=== PATIENT | female | born 1975 | race Caucasian/White ===

== ENCOUNTER 2021-05-28 22:33 | Inpatient (IN) | payer OTHER ==
[2021-05-28] MEDS ORDERED: SODIUM CHLORIDE 0.9% 1,000 ML IV STA (23:07)
[2021-05-28] MEDS ORDERED: DEXAMETHASONE SOD PHOSPHATE 10 MG/ML 1 ML VIAL IVP STA (23:07)
[2021-05-28] MEDS ORDERED: KETOROLAC 15 MG/ML 1 ML VIAL IVP STA (23:07)
[2021-05-28] MEDS ORDERED: ACETAMINOPHEN TAB 500 MG TAB PO STA (23:07)
[2021-05-28] MEDS ORDERED: MORPHINE SULFATE 4 MG/ML SYRINGE IVP STA (23:19)
--- NOTE | 2021-05-28 23:19 | ED ---
Fever HPI - General Source: patient, RN notes reviewed, old records reviewed Mode of arrival: wheelchair Limitations: no limitations - History of Present Illness MD Complaint: fever, malaise, weakness -: days(s) Temperature Source: subjective Context: sick contacts Associated Symptoms: chills, myalgias, other (Back pain) Treatments Prior to Arrival: none <Min Antunez - Last Filed: 05/29/21 04:38> <Ermelinda Bautista - Last Filed: 05/29/21 07:04> - General Chief Complaint: Chest Pain Stated Complaint: Chest pain, swelling throughout body, MONIK Time Seen by Provider: 05/28/21 22:56 - History of Present Illness Initial Comments: This is a 46-year-old female to the emergency room today. Patient Dese for evaluation of severe back pain. Patient states she does not feel well. Does feel little warm and is noted that she does have a likely fever here in the emergency. Patient has a strong medical history distress. Fall with surgeries as a young age, no recent surgeries. No nausea vomiting diarrhea or abdominal pain. Patient was at a concert recently. Patient's main concern is back pain but otherwise no current chest pain or shortness of breath (Min Antunez) - Related Data Allergies Allergy/AdvReac Type Severity Reaction Status Date / Time No Known Allergies Allergy Verified 05/28/21 22:44 Review of Systems ROS Other: All systems not noted in ROS Statement are negative. <Min Antunez - Last Filed: 05/29/21 04:38> ROS Other: All systems not noted in ROS Statement are negative. <Ermelinda Bautista - Last Filed: 05/29/21 07:04> ROS Statement: Those systems with pertinent positive or pertinent negative responses have been documented in the HPI. Past Medical History Past Medical History: Chest Pain / Angina, Hypertension History of Any Multi-Drug Resistant Organisms: None Reported Past Surgical History: Cardiac Valve Replacement, Heart Catheterization Additional Past Surgical History / Comment(s): tetralogy of fallot Past Psychological History: No Psychological Hx Reported Smoking Status: Never smoker Past Alcohol Use History: None Reported Past Drug Use History: Marijuana <Min Antunez - Last Filed: 05/29/21 04:38> General Exam Limitations: no limitations General appearance: alert, in no apparent distress, anxious Head exam: Present: atraumatic, normocephalic, normal inspection Eye exam: Present: normal appearance, PERRL, EOMI. Absent: scleral icterus, conjunctival injection, periorbital swelling ENT exam: Present: normal exam, mucous membranes moist Neck exam: Present: normal inspection. Absent: tenderness, meningismus, lymphadenopathy Respiratory exam: Present: normal lung sounds bilaterally. Absent: respiratory distress, wheezes, rales, rhonchi, stridor Cardiovascular Exam: Present: normal rhythm, tachycardia, normal heart sounds. Absent: systolic murmur, diastolic murmur, rubs, gallop, clicks GI/Abdominal exam: Present: soft, normal bowel sounds. Absent: distended, tenderness, guarding, rebound, rigid Extremities exam: Present: normal inspection, full ROM, normal capillary refill. Absent: tenderness, pedal edema, joint swelling, calf tenderness Back exam: Present: normal inspection Neurological exam: Present: alert, oriented X3, CN II-XII intact Psychiatric exam: Present: normal affect, normal mood Skin exam: Present: warm, dry, intact, normal color. Absent: rash <Min Antunez - Last Filed: 05/29/21 04:38> Course <Min Antunez - Last Filed: 05/29/21 04:38> Vital Signs 05/28/21 05/29/21 05/29/21 22:36 00:30 02:05 Temperature 102.1 F H Pulse Rate 108 H 81 77 Respiratory 18 18 18 Rate Blood Pressure 157/89 148/89 O2 Sat by Pulse 97 97 96 Oximetry 05/29/21 05/29/21 04:32 06:36 Temperature 97.7 F Pulse Rate 63 83 Respiratory 18 18 Rate Blood Pressure 148/107 141/100 O2 Sat by Pulse 97 100 Oximetry - Reevaluation(s) Reevaluation #1: 05/29/21 04:39 Medical record is reviewed (Min Antunez) Reevaluation #2: 05/29/21 04:39 A patient symptoms improved now resolved after pain control fever control (Min Antunez) - Consultations Consultation #1: 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 Did send a copy of an EKG as well as baseline troponin (Min Antunez) Medical Decision Making - Lab Data Result diagrams: 05/28/21 23:40 05/28/21 23:40 - EKG Data -: EKG Interpreted by Me (EKG shows NSR 99 WA 134 QRS 116 QTc 441) <Min Antunez - Last Filed: 05/29/21 04:38> - Lab Data Result diagrams: 05/28/21 23:40 05/28/21 23:40 <Ermelinda Bautista - Last Filed: 05/29/21 07:04> - Medical Decision Making Patient's second troponin does return and is lower. Called and spoke with Dr. Booth who agreed to admit the patient. Patient awaiting a bed on the floor (Ermelinda Bautista) - Lab Data Lab Results 05/28/21 05/28/21 05/28/21 Range/Units 23:40 23:40 23:40 WBC 11.4 H (3.8-10.6) k/uL RBC 4.31 (3.80-5.40) m/uL Hgb 10.4 L (11.4-16.0) gm/dL Hct 33.5 L (34.0-46.0) % MCV 77.7 L (80.0-100.0) fL MCH 24.2 L (25.0-35.0) pg MCHC 31.1 (31.0-37.0) g/dL RDW 16.8 H (11.5-15.5) % Plt Count 201 (150-450) k/uL MPV 9.2 Neutrophils % 87 % Lymphocytes % 8 % Monocytes % 3 % Eosinophils % 0 % Basophils % 0 % Neutrophils # 9.9 H (1.3-7.7) k/uL Lymphocytes # 0.9 L (1.0-4.8) k/uL Monocytes # 0.4 (0-1.0) k/uL Eosinophils # 0.0 (0-0.7) k/uL Basophils # 0.0 (0-0.2) k/uL Hypochromasia Moderate Anisocytosis Slight Microcytosis Slight PT 11.7 (9.0-12.0) sec INR 1.1 (<1.2) APTT 20.8 L (22.0-30.0) sec Sodium 132 L (137-145) mmol/L Potassium 4.1 (3.5-5.1) mmol/L Chloride 98 (98-107) mmol/L Carbon Dioxide 21 L (22-30) mmol/L Anion Gap 13 mmol/L BUN 10 (7-17) mg/dL Creatinine 0.80 (0.52-1.04) mg/dL Est GFR (CKD-EPI)AfAm >90 (>60 ml/min/1.73 sqM) Est GFR (CKD-EPI)NonAf 90 (>60 ml/min/1.73 sqM) Glucose 99 (74-99) mg/dL Plasma Lactic Acid Anthony (0.7-2.0) mmol/L Calcium 8.8 (8.4-10.2) mg/dL Magnesium 1.8 (1.6-2.3) mg/dL Total Bilirubin 0.9 (0.2-1.3) mg/dL AST 27 (14-36) U/L ALT 16 (4-34) U/L Alkaline Phosphatase 148 H (38-126) U/L Lactate Dehydrogenase 877 H (313-618) U/L Troponin I (0.000-0.034) ng/mL C-Reactive Protein 5.8 H (<1.0) mg/dL NT-Pro-B Natriuret Pep pg/mL Total Protein 6.8 (6.3-8.2) g/dL Albumin 3.4 L (3.5-5.0) g/dL Urine Color Urine Appearance (Clear) Urine pH (5.0-8.0) Ur Specific [place] (1.001-1.035) Urine Protein (Negative) Urine Glucose (UA) (Negative) Urine Ketones (Negative) Urine Blood (Negative) Urine Nitrite (Negative) Urine Bilirubin (Negative) Urine Urobilinogen (<2.0) mg/dL Ur Leukocyte Esterase (Negative) Urine RBC (0-5) /hpf Urine WBC (0-5) /hpf Ur Squamous Epith Cells (0-4) /hpf Urine Bacteria (None) /hpf Coronavirus (PCR) (Not Detectd) 05/28/21 05/28/21 05/28/21 Range/Units 23:40 23:40 23:40 WBC (3.8-10.6) k/uL RBC (3.80-5.40) m/uL Hgb (11.4-16.0) gm/dL Hct (34.0-46.0) % MCV (80.0-100.0) fL MCH (25.0-35.0) pg MCHC (31.0-37.0) g/dL RDW (11.5-15.5) % Plt Count (150-450) k/uL MPV Neutrophils % % Lymphocytes % % Monocytes % % Eosinophils % % Basophils % % Neutrophils # (1.3-7.7) k/uL Lymphocytes # (1.0-4.8) k/uL Monocytes # (0-1.0) k/uL Eosinophils # (0-0.7) k/uL Basophils # (0-0.2) k/uL Hypochromasia Anisocytosis Microcytosis PT (9.0-12.0) sec INR (<1.2) APTT (22.0-30.0) sec Sodium (137-145) mmol/L Potassium (3.5-5.1) mmol/L Chloride (98-107) mmol/L Carbon Dioxide (22-30) mmol/L Anion Gap mmol/L BUN (7-17) mg/dL Creatinine (0.52-1.04) mg/dL Est GFR (CKD-EPI)AfAm (>60 ml/min/1.73 sqM) Est GFR (CKD-EPI)NonAf (>60 ml/min/1.73 sqM) Glucose (74-99) mg/dL Plasma Lactic Acid Anthony 1.7 (0.7-2.0) mmol/L Calcium (8.4-10.2) mg/dL Magnesium (1.6-2.3) mg/dL Total Bilirubin (0.2-1.3) mg/dL AST (14-36) U/L ALT (4-34) U/L Alkaline Phosphatase (38-126) U/L Lactate Dehydrogenase (313-618) U/L Troponin I 0.111 H* (0.000-0.034) ng/mL C-Reactive Protein (<1.0) mg/dL NT-Pro-B Natriuret Pep 83160 pg/mL Total Protein (6.3-8.2) g/dL Albumin (3.5-5.0) g/dL Urine Color Urine Appearance (Clear) Urine pH (5.0-8.0) Ur Specific [place] (1.001-1.035) Urine Protein (Negative) Urine Glucose (UA) (Negative) Urine Ketones (Negative) Urine Blood (Negative) Urine Nitrite (Negative) Urine Bilirubin (Negative) Urine Urobilinogen (<2.0) mg/dL Ur Leukocyte Esterase (Negative) Urine RBC (0-5) /hpf Urine WBC (0-5) /hpf Ur Squamous Epith Cells (0-4) /hpf Urine Bacteria (None) /hpf Coronavirus (PCR) (Not Detectd) 05/29/21 05/29/21 05/29/21 Range/Units 00:55 04:32 04:32 WBC (3.8-10.6) k/uL RBC (3.80-5.40) m/uL Hgb (11.4-16.0) gm/dL Hct (34.0-46.0) % MCV (80.0-100.0) fL MCH (25.0-35.0) pg MCHC (31.0-37.0) g/dL RDW (11.5-15.5) % Plt Count (150-450) k/uL MPV Neutrophils % % Lymphocytes % % Monocytes % % Eosinophils % % Basophils % % Neutrophils # (1.3-7.7) k/uL Lymphocytes # (1.0-4.8) k/uL Monocytes # (0-1.0) k/uL Eosinophils # (0-0.7) k/uL Basophils # (0-0.2) k/uL Hypochromasia Anisocytosis Microcytosis PT (9.0-12.0) sec INR (<1.2) APTT (22.0-30.0) sec Sodium (137-145) mmol/L Potassium (3.5-5.1) mmol/L Chloride (98-107) mmol/L Carbon Dioxide (22-30) mmol/L Anion Gap mmol/L BUN (7-17) mg/dL Creatinine (0.52-1.04) mg/dL Est GFR (CKD-EPI)AfAm (>60 ml/min/1.73 sqM) Est GFR (CKD-EPI)NonAf (>60 ml/min/1.73 sqM) Glucose (74-99) mg/dL Plasma Lactic Acid Anthony (0.7-2.0) mmol/L Calcium (8.4-10.2) mg/dL Magnesium (1.6-2.3) mg/dL Total Bilirubin (0.2-1.3) mg/dL AST (14-36) U/L ALT (4-34) U/L Alkaline Phosphatase (38-126) U/L Lactate Dehydrogenase (313-618) U/L Troponin I 0.076 H* (0.000-0.034) ng/mL C-Reactive Protein (<1.0) mg/dL NT-Pro-B Natriuret Pep pg/mL Total Protein (6.3-8.2) g/dL Albumin (3.5-5.0) g/dL Urine Color Light Yellow Urine Appearance Clear (Clear) Urine pH 6.5 (5.0-8.0) Ur Specific [place] 1.003 (1.001-1.035) Urine Protein Negative (Negative) Urine Glucose (UA) Negative (Negative) Urine Ketones Negative (Negative) Urine Blood Small H (Negative) Urine Nitrite Negative (Negative) Urine Bilirubin Negative (Negative) Urine Urobilinogen <2.0 (<2.0) mg/dL Ur Leukocyte Esterase Negative (Negative) Urine RBC 1 (0-5) /hpf Urine WBC 2 (0-5) /hpf Ur Squamous Epith Cells 5 H (0-4) /hpf Urine Bacteria Rare H (None) /hpf Coronavirus (PCR) Not Detected (Not Detectd) Disposition <Min Antunez - Last Filed: 05/29/21 04:38> Is patient prescribed a controlled substance at d/c from ED?: No Decision to Admit Reason: Admit from EC Decision Date: 05/29/21 Decision Time: 06:24 <Ermelinda Bautista - Last Filed: 05/29/21 07:04> Clinical Impression: Fever Disposition: ADMITTED IP TO THIS HOSP Condition: Stable
[2021-05-28] MEDS ORDERED: IBUPROFEN 400 MG TAB PO STA (23:20)
--- NOTE | 2021-05-28 23:28 | XR ---
EXAMINATION TYPE: XR chest 1V portable DATE OF EXAM: 05/28/2021 COMPARISON: NONE HISTORY: Pneumonia. TECHNIQUE: Single view FINDINGS: There is no heart failure nor confluent pneumonic infiltrate. Costophrenic angles are clear . Heart appears borderline enlarged. There are sternal wires. There are clips at the right side of th e base of the neck. IMPRESSION: No active cardiopulmonary disease.
[2021-05-28 23:56] LABS: Anisocytosis Slight; Basophils % (A) 0 %; Eosinophils % (A) 0 %; HCT 33.5 % (34.0-46.0); HGB 10.4 gm/dL (11.4-16.0); Hypochromasia Moderate; Lymphocytes # (A) 0.9 k/uL (1.0-4.8); Lymphocytes % (A) 8 %; MCH 24.2 pg (25.0-35.0); MCHC 31.1 g/dL (31.0-37.0); MCV 77.7 fL (80.0-100.0); Mean Platelet Volume 9.2; Microcytosis Slight; Monocytes # (A) 0.4 k/uL (0-1.0); Monocytes % (A) 3 %; Neutrophils # (A) 9.9 k/uL (1.3-7.7); Neutrophils % (A) 87 %; Platelet Count 201 k/uL (150-450); RBC 4.31 m/uL (3.80-5.40); RDW 16.8 % (11.5-15.5); WBC 11.4 k/uL (3.8-10.6)
[2021-05-29 00:16] LABS: INR 1.1 (<1.2); Prothrombin Time 11.7 sec (9.0-12.0)
[2021-05-29 00:28] LABS: ALT 16 U/L (4-34); AST 27 U/L (14-36); African American GFR (CKD) >90 (>60 ml/min/1.73 sqM); Albumin 3.4 g/dL (3.5-5.0); Alkaline Phosphatase 148 U/L (38-126); Anion Gap 13 mmol/L; Blood Urea Nitrogen 10 mg/dL (7-17); C Reactive Protein 5.8 mg/dL (<1.0); Calcium 8.8 mg/dL (8.4-10.2); Carbon Dioxide 21 mmol/L (22-30); Chloride 98 mmol/L (98-107); Glucose 99 mg/dL (74-99); LDH 877 U/L (313-618); Magnesium 1.8 mg/dL (1.6-2.3); Non-African American GFR(CKD) 90 (>60 ml/min/1.73 sqM); Potassium 4.1 mmol/L (3.5-5.1); Sodium 132 mmol/L (137-145); Total Bilirubin 0.9 mg/dL (0.2-1.3); Total Protein 6.8 g/dL (6.3-8.2)
[2021-05-29 00:39] LABS: Partial Thromboplastin Time 20.8 sec (22.0-30.0)
[2021-05-29] MEDS ORDERED: VANCOMYCIN IV PER PHARMACY 1 EACH MISC MISCELLANE PRN (03:32)
[2021-05-29] MEDS ORDERED: PIPERACILLIN-TAZOBACTAM 3.375 GM in SODIUM CHLORIDE 0.9% 100 ML IVPB STA (03:32)
[2021-05-29] MEDS ORDERED: VANCOMYCIN 1,000 MG in SODIUM CHLORIDE 0.9% 250 ML IVPB ONE (04:00)
[2021-05-29 05:05] LABS: Appearance,Urine Clear (Clear); Bacteria,Urine Rare /hpf; Bilirubin,Urine Negative (Negative); Blood,Urine Small (Negative); Color,Urine Light Yellow; Glucose,Urine (UA) Negative (Negative); Ketones,Urine Negative (Negative); Leukocyte Esterase,Urine Negative (Negative); Nitrite,Urine Negative (Negative); PH, Urine 6.5 (5.0-8.0); Protein,Urine Negative (Negative); RBC,Urine 1 /hpf (0-5); Specific Gravity,Urine 1.003 (1.001-1.035); Squamous Epithelial Cell,Urine 5 /hpf (0-4); Urobilinogen,Urine <2.0 mg/dL (<2.0); WBC,Urine 2 /hpf (0-5)
[2021-05-29] MEDS ORDERED: NALOXONE 0.4 MG/ML 1 ML VIAL IV PRN (06:24)
[2021-05-29] MEDS ORDERED: IBUPROFEN 400 MG TAB PO PRN (06:24)
[2021-05-29] MEDS ORDERED: ASPIRIN 325 MG TAB PO STA (07:31)
[2021-05-29] MEDS ORDERED: FUROSEMIDE 10 MG/ML 4 ML VIAL IV STA (07:33)
[2021-05-29] MEDS ORDERED: HEPARIN SODIUM 1,000 UN/ML (10ML VL) IV ONE (07:36)
[2021-05-29] MEDS ORDERED: HEPARIN SODIUM 1,000 UN/ML (10ML VL) IV PRN (07:36)
--- NOTE | 2021-05-29 07:43 | P.HPIM ---
History of Present Illness H&P Date: 05/29/21 This is a 46-year-old female with complex past medical history significant for tetralogy of Fallot status post surgical repair in childhood, status post pulmonary valve replacement at age 14 and presented to the emergency room with worsening exertional dyspnea and chest pain. Patient said that her symptoms started a week ago and she was having problems with shortness of breath mostly on exertion walking around or climbing stairs. She also noted worsening bilateral lower extremity swelling and some puffiness in her face. This morning, she started having some chest discomfort in the middle of her chest radiating to the left shoulder. Patient was also complaining of nonspecific pain all over her body during my interview with her this morning. She is currently chest pain-free. She was evaluated in the ER and was found to have a fever of 102.0 with no exact source. Patient is not vaccinated for COVID-19 that her screening test was negative. Chest x-ray and urinalysis both unremarkable for infection. Blood culture sent and pending. Patient was noted to have a significantly elevated BNP with no overt pulmonary edema on chest x- ray. 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 H er troponin was also elevated on presentation but patient was not given aspirin or started on anticoagulation. Patient will be admitted to the hospital for further management Review of Systems Review of system: 14 points review of systems were obtained and were negative except to what were mentioned in the HPI. Past Medical History Past Medical History: Chest Pain / Angina, Hypertension History of Any Multi-Drug Resistant Organisms: None Reported Past Surgical History: Cardiac Valve Replacement, Heart Catheterization Additional Past Surgical History / Comment(s): tetralogy of fallot Past Psychological History: No Psychological Hx Reported Smoking Status: Never smoker Past Alcohol Use History: None Reported Past Drug Use History: Marijuana Medications and Allergies Allergies Allergy/AdvReac Type Severity Reaction Status Date / Time No Known Allergies Allergy Verified 05/28/21 22:44 Physical Exam Vitals: Vital Signs Temp Pulse Resp BP Pulse Ox 05/29/21 06:36 97.7 F 83 18 141/100 100 05/29/21 04:32 63 18 148/107 97 05/29/21 02:05 77 18 96 05/29/21 00:30 81 18 148/89 97 05/28/21 22:36 102.1 F H 108 H 18 157/89 97 Intake and Output 05/28/21 05/29/21 05/29/21 22:59 06:59 14:59 Other: Weight 48.081 kg General: The patient is awake and alert, in no distress Eye: there is normal conjunctiva bilaterally. Neck: The neck is supple, there is no JVD. Cardiovascular: There is a loud systolic murmur. Normal S1-S2, no S3-S4, no murmurs. Respiratory: Lungs clear to auscultation bilaterally Gastrointestinal: Abdomen is soft, nontender Musculoskeletal: There is trace edema bilaterally Neurological:. Speech is normal. Skin: Skin is warm and dry Results CBC & Chem 7: 05/28/21 23:40 05/28/21 23:40 Labs: Abnormal Lab Results - Last 24 Hours (Table) 05/28/21 05/28/21 05/28/21 Range/Units 23:40 23:40 23:40 WBC 11.4 H (3.8-10.6) k/uL Hgb 10.4 L (11.4-16.0) gm/dL Hct 33.5 L (34.0-46.0) % MCV 77.7 L (80.0-100.0) fL MCH 24.2 L (25.0-35.0) pg RDW 16.8 H (11.5-15.5) % Neutrophils # 9.9 H (1.3-7.7) k/uL Lymphocytes # 0.9 L (1.0-4.8) k/uL APTT 20.8 L (22.0-30.0) sec Sodium 132 L (137-145) mmol/L Carbon Dioxide 21 L (22-30) mmol/L Alkaline Phosphatase 148 H (38-126) U/L Lactate Dehydrogenase 877 H (313-618) U/L Troponin I (0.000-0.034) ng/mL C-Reactive Protein 5.8 H (<1.0) mg/dL Albumin 3.4 L (3.5-5.0) g/dL Urine Blood (Negative) Ur Squamous Epith Cells (0-4) /hpf Urine Bacteria (None) /hpf 05/28/21 05/29/21 05/29/21 Range/Units 23:40 04:32 04:32 WBC (3.8-10.6) k/uL Hgb (11.4-16.0) gm/dL Hct (34.0-46.0) % MCV (80.0-100.0) fL MCH (25.0-35.0) pg RDW (11.5-15.5) % Neutrophils # (1.3-7.7) k/uL Lymphocytes # (1.0-4.8) k/uL APTT (22.0-30.0) sec Sodium (137-145) mmol/L Carbon Dioxide (22-30) mmol/L Alkaline Phosphatase (38-126) U/L Lactate Dehydrogenase (313-618) U/L Troponin I 0.111 H* 0.076 H* (0.000-0.034) ng/mL C-Reactive Protein (<1.0) mg/dL Albumin (3.5-5.0) g/dL Urine Blood Small H (Negative) Ur Squamous Epith Cells 5 H (0-4) /hpf Urine Bacteria Rare H (None) /hpf Assessment and Plan Assessment: 1. Non-ST elevation AZ: I ordered aspirin 325 mg 1 now. I would also start the patient on IV heparin. Awaiting cardiology evaluation. Echocardiogram ordered. Awaiting third troponin. Continue telemetry monitoring. 2. Sepsis on presentation without septic shock. Exact etiology unclear. Blood culture sent and pending. COVID-19 screen negative. Chest x-ray and urinalysis unremarkable. Patient denies any flulike symptoms. I would consult infectious disease for further evaluation. 3. History of tetralogy of Fallot status post surgical repair with pulmonary valve replacement at age 14 (per patient report) 4. Suspected right heart failure with significantly elevated BNP: I ordered one-time dose IV Lasix 40 mg. Awaiting echocardiogram for further evaluation.
[2021-05-29 09:55] LABS: INR 1.2 (<1.2); Partial Thromboplastin Time 24.3 sec (22.0-30.0); Prothrombin Time 12.1 sec (9.0-12.0)
[2021-05-29] MEDS: HEPARIN SOD,PORK IN 0.45% NACL 25,000 UNIT in 0.45% NACL 1 250ML.BAG IV SCH (12:13)
[2021-05-29] MEDS: VANCOMYCIN 750 MG in SODIUM CHLORIDE 0.9% 250 ML IVPB SCH (12:19)
--- NOTE | 2021-05-29 12:49 | P.CRDCN ---
History of Present Illness History of present illness: This is a 46-year-old female with past medical history significant for tetralogy of Fallot status post surgical repair in childhood, status post pulmonary valve replacement at age 18, another valve surgery in her 30s (possible TAVR per patient's description), hypertension. She follows with Dr. Gutierrez at [facility]. We are consulted for NSTEMI. She presents to the emergency department with worsening shortness of breath, left sided chest pain radiating to her left arm, palpitations. She states her symptoms started 1 month ago and progressively getting worse. She is also having symptoms of fever, chills, night sweats, Left sided abdominal pain, nausea and vomiting. She states her left sided chest pain and arm pain, worsened yesterday, describes it as a tightness, it was non-ex ertional. Aggravated by movement. She states it has improved with medication in the ER which she was given Tylenol and IV morphine. She had lower extremity swelling which has improved/resolved. She also endorses facial swelling at home. She states she did have a cardiac catheterization in her 30s and was told it was normal. Most recent stress test/echocardiogram was about 3 years ago. She denies history of diabetes, IA, stroke, seizure. She denies history of CAD. She denies smoking or alcohol use. She occasionally smokes marijuana. She denies illicit drug use DIAGNOSTICS EKG reveals sinus rhythm, heart rate 79, right bundle branch block, T wave inversions in leads V2-V5, ST depression in inferior leads, LVH. No Prior EKG to compare. Chest xray no acute cardiopulmonary process. Laboratory reviewed, WBC 11.4, hemoglobin 10.4, platelets 201, d-dimer 6.08, sodium 132, potassium 4.1, BUN 10, serum creatinine 0.8, 97.9, troponin 0.11, 0.07, 0.04, proBNP 15,400, COVID-19 negative Current cardiac medications include none REVIEW OF SYSTEMS At the time of my exam: CONSTITUTIONAL:+ fever +chills. CARDIOVASCULAR: + chest pain, +shortness of breath, Denies orthopnea, PND or palpitations. RESPIRATORY: Denies cough. GASTROINTESTINAL: Denies abdominal pain, diarrhea, constipation, nausea or vomiting. MUSCULOSKELETAL: Denies myalgias. NEUROLOGIC: Denies numbness, tingling, headacbe or weakness. ENDOCRINE: Denies fatigue, weight change, polydipsia or polyurina. GENITOURINARY: Denies burning, hematuria or urgency with micturation. HEMATOLOGIC: + history of anemia Denies bleeding. PHYSICAL EXAMINATION Blood pressure 125/92, rate 70, afebrile saturations denies that percent on room air CONSTITUTIONAL: No apparent distress HEENT: Head is normocephalic. Pupils are equal, round. Sclerae anicteric. Mucous membranes of the mouth are moist. No JVD. No carotid bruit. CHEST EXAMINATION: Lungs are clear to auscultation. No chest wall tenderness is noted on palpation or with deep breathing. HEART EXAMINATION: Regular rate and rhythm. S1, S2 heard. Systolic and diastolic murmur noted at base and apex ABDOMEN: Soft, Tender left lower quadrant. Positive bowel sounds. EXTREMITIES: 2+ peripheral pulses, no lower extremity edema and no calf tenderness. +splinter hemorrhages and red lesions on bilateral fingers SKIN: moist, pale NEUROLOGIC EXAMINATION: Patient is awake, alert and oriented x3. 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 Past Medical History Past Medical History: Chest Pain / Angina, Hypertension History of Any Multi-Drug Resistant Organisms: None Reported Past Surgical History: Cardiac Valve Replacement, Heart Catheterization Additional Past Surgical History / Comment(s): tetralogy of fallot Past Psychological History: No Psychological Hx Reported Smoking Status: Never smoker Past Alcohol Use History: None Reported Past Drug Use History: Marijuana Medications and Allergies Home Medications Medication Instructions Recorded Confirmed Type Cyclobenzaprine [Flexeril] 5 mg PO Q8H PRN 05/29/21 05/29/21 History Dextroamphetamine/Amphetamine 20 mg PO TID 05/29/21 05/29/21 History [Adderall] Ibuprofen [Motrin] 800 mg PO Q8H PRN 05/29/21 05/29/21 History Omeprazole 20 mg PO DAILY 05/29/21 05/29/21 History Ondansetron [Zofran] 4 mg PO TID PRN 05/29/21 05/29/21 History Allergies Allergy/AdvReac Type Severity Reaction Status Date / Time No Known Allergies Allergy Verified 05/29/21 07:57 Physical Exam Vitals: Vital Signs Temp Pulse Resp BP Pulse Ox 05/29/21 06:36 97.7 F 83 18 141/100 100 05/29/21 04:32 63 18 148/107 97 05/29/21 02:05 77 18 96 05/29/21 00:30 81 18 148/89 97 05/28/21 22:36 102.1 F H 108 H 18 157/89 97 Intake and Output 05/28/21 05/29/21 05/29/21 22:59 06:59 14:59 Other: Weight 48.081 kg Results 05/28/21 23:40 05/28/21 23:40 Cardiac Enzymes 05/28/21 05/28/21 05/29/21 Range/Units 23:40 23:40 04:32 AST 27 (14-36) U/L Lactate Dehydrogenase 877 H (313-618) U/L Troponin I 0.111 H* 0.076 H* (0.000-0.034) ng/mL Coagulation 05/28/21 Range/Units 23:40 PT 11.7 (9.0-12.0) sec APTT 20.8 L (22.0-30.0) sec CBC 05/28/21 Range/Units 23:40 WBC 11.4 H (3.8-10.6) k/uL RBC 4.31 (3.80-5.40) m/uL Hgb 10.4 L (11.4-16.0) gm/dL Hct 33.5 L (34.0-46.0) % Plt Count 201 (150-450) k/uL Comprehensive Metabolic Panel 05/28/21 Range/Units 23:40 Sodium 132 L (137-145) mmol/L Potassium 4.1 (3.5-5.1) mmol/L Chloride 98 (98-107) mmol/L Carbon Dioxide 21 L (22-30) mmol/L BUN 10 (7-17) mg/dL Creatinine 0.80 (0.52-1.04) mg/dL Glucose 99 (74-99) mg/dL Calcium 8.8 (8.4-10.2) mg/dL AST 27 (14-36) U/L ALT 16 (4-34) U/L Alkaline Phosphatase 148 H (38-126) U/L Total Protein 6.8 (6.3-8.2) g/dL Albumin 3.4 L (3.5-5.0) g/dL Current Medications Generic Name Dose Route Start Last Admin Trade Name Freq PRN Reason Stop Dose Admin Acetaminophen 650 mg 05/29/21 06:24 Acetaminophen Tab 325 Mg Tab PO Q6HR PRN Mild Pain or Fever > 100.5 Heparin Sodium (Porcine) 0 unit 05/29/21 07:36 Heparin Sodium 1,000 Un/Ml (10ml Vl) IV PER PROTOCOL PRN Low PTT Protocol Heparin Sodium/Sodium Chloride 250 mls @ 5.77 mls/hr 05/29/21 07:45 25,000 unit/ Sodium Chloride IV .Q24H SHAYNA Protocol 12 UNITS/KG/HR Miscellaneous Information 1 each 05/29/21 03:32 Vancomycin Iv Per Pharmacy 1 Each Misc MISCELLANE DIRECTED PRN Per Protocol Protocol Naloxone HCl 0.2 mg 05/29/21 06:24 Naloxone 0.4 Mg/Ml 1 Ml Vial IV Q2M PRN Opioid Reversal Intake and Output 05/28/21 05/29/21 05/29/21 22:59 06:59 14:59 Other: Weight 48.081 kg 05/28/21 23:40 05/28/21 23:40
--- NOTE | 2021-05-29 13:30 | ECHOF ---
Referral Reason: MEASUREMENTS -------- HEIGHT: 180.3 cm WEIGHT: 48.1 kg BP: RVIDd: 3.1 cm (< 3.3) IVSd: 1.3 cm (0.6 - 1.1) LVIDd: 3.0 cm (3.9 - 5.3) LVPWd: 1.4 cm (0.6 - 1.1) IVSs: 1.4 cm LVIDs: 2.2 cm LVPWs: 1.9 cm Ao Diam: 3.3 cm (2.0 - 3.7) AV Cusp: 1.7 cm (1.5 - 2.6) LA Diam: 2.6 cm (2.7 - 3.8) MV EXCURSION: 11.118 mm (> 18.000) MV EF SLOPE: 21 mm/s (70 - 150) EPSS: 0.7 cm MV E Edgar: 0.62 m/s MV DecT: 192 ms MV A Edgar: 0.65 m/s MV E/A Ratio: 0.96 AV maxP.63 mmHg AV meanP.19 mmHg AR PHT: 812 ms RAP: 5.00 mmHg RVSP: 89.79 mmHg FINDINGS -------- This was a technically good study. The left ventricular size is normal. There is mild concentric left ventricular hypertrophy. Overa ll left ventricular systolic function is normal with, an EF between 55 - 60 %. The right ventricle is normal in size. The left atrial size is normal. The right atrial size is normal. The ventricular septum appears intact with septal repair. There is a 1.4 cm mobile echodensity whic h is subaortic and appears attached to the ventricular septum. Differential includes surgical remnan t from prior Tetralogy surgery or vegetation. Clinical correlation recommended and would consider TE E if clinically indicated. There is xryo-ln-adbfbwyk aortic regurgitation. Peak/mean gradient across the Aortic Valve is 13.63 mmHg / 7.19mmHg. The mitral valve is normal. Mild mitral regurgitation is present. The tricuspid valve appears structurally normal. Moderate tricuspid regurgitation present. The ri ght ventricular systolic pressure, as measured by Doppler, is 89.79mmHg. RVSP elevation likely in p art related to pulmonic stenosis and may not neccessarily indicate pulmonary hypertension. There is moderate to severe pulmonic stenosis with Vmax 4.19m/s and mean gradient 37mmHg. There is a mobile 2.0 x 1.6cm echodensity in the proximal pulmonary artery/ supra pulmonic valve, only identif ied on the aortic arch views concerning for vegetation. Clinical correlation recommended. Consider SHARON if clinically indicated. The aortic root size is normal. Normal inferior vena cava with normal inspiratory collapse consistent with estimated right atrial pre ssure of 5 mmHg. There is no pericardial effusion. CONCLUSIONS -------- 1. The left ventricular size is normal. 2. There is mild concentric left ventricular hypertrophy. 3. Overall left ventricular systolic function is normal with, an EF between 55 - 60 %. 4. The ventricular septum appears intact with septal repair. 5. There is a 1.4 cm mobile echodensity which is subaortic and appears attached to the ventricular se ptum. Differential includes surgical remnant from prior Tetralogy surgery or vegetation. Clinical c orrelation recommended and would consider SHARON if clinically indicated. 6. There is ifsg-oj-hhzhanen aortic regurgitation. 7. Peak/mean gradient across the Aortic Valve is 13.63mmHg / 7.19mmHg. 8. Mild mitral regurgitation is present. 9. Moderate tricuspid regurgitation present. 10. The right ventricular systolic pressure, as measured by Doppler, is 89.79mmHg. 11. RVSP elevation likely in part related to pulmonic stenosis and may not neccessarily indicate pulm onary hypertension. 12. There is moderate to severe pulmonic stenosis with Vmax 4.19m/s and mean gradient 37mmHg. 13. There is a mobile 2.0 x 1.6cm echodensity in the proximal pulmonary artery/ supra pulmonic valve, only identified on the aortic arch views concerning for vegetation. Clinical correlation recommende d. Consider SHARON if clinically indicated. 14. There is no pericardial effusion. CARTON STAMPER: Francisca Ayala RDCS
[2021-05-29] MEDS: ACETAMINOPHEN TAB 325 MG TAB PO PRN (18:28)
[2021-05-30] MEDS ORDERED: VANCOMYCIN TROUGH DUE 1 EACH MISC MISCELLANE ONE (04:00)
[2021-05-30 05:08] LABS: Anisocytosis Slight; Basophils % (A) 0 %; Eosinophils % (A) 0 %; HGB 10.7 gm/dL (11.4-16.0); Hypochromasia Marked; Lymphocytes # (A) 1.3 k/uL (1.0-4.8); Lymphocytes % (A) 13 %; MCH 23.9 pg (25.0-35.0); MCHC 30.5 g/dL (31.0-37.0); MCV 78.3 fL (80.0-100.0); Mean Platelet Volume 8.4; Microcytosis Slight; Monocytes # (A) 0.5 k/uL (0-1.0); Monocytes % (A) 5 %; Neutrophils # (A) 7.9 k/uL (1.3-7.7); Neutrophils % (A) 80 %; Platelet Count 230 k/uL (150-450); Poikilocytosis Slight; RBC 4.47 m/uL (3.80-5.40); RDW 16.7 % (11.5-15.5); WBC 9.9 k/uL (3.8-10.6)
[2021-05-30 05:32] LABS: INR 1.1 (<1.2); Partial Thromboplastin Time 24.4 sec (22.0-30.0); Prothrombin Time 11.8 sec (9.0-12.0)
[2021-05-30 05:49] LABS: African American GFR (CKD) >90 (>60 ml/min/1.73 sqM); Anion Gap 7 mmol/L; Blood Urea Nitrogen 21 mg/dL (7-17); Calcium 8.8 mg/dL (8.4-10.2); Carbon Dioxide 25 mmol/L (22-30); Chloride 105 mmol/L (98-107); Glucose 100 mg/dL (74-99); Non-African American GFR(CKD) >90 (>60 ml/min/1.73 sqM); Potassium 3.8 mmol/L (3.5-5.1); Sodium 137 mmol/L (137-145)
[2021-05-30] MEDS: VANCOMYCIN 750 MG in SODIUM CHLORIDE 0.9% 250 ML IVPB SCH ×2 (07:37→09:08)
--- NOTE | 2021-05-30 08:07 | P.CONS ---
History of Present Illness - Reason for Consult Consult date: 05/29/21 Fever Requesting physician: Zuleyma Suh - Chief Complaint shortness of breath and chest pain x days - History of Present Illness History of present illness : Patient is 46-year-old female with a past medical history significant for tetralogy of Fallot status post surgical repair and is status post pulmonary valve replacement at age 14 patient presented to [facility] ER for evaluation of increasing shortness of breath chest pain and lower extremity swelling in this patient symptom has been getting worse for the last 1 week the morning of presentation to the hospital patient did have a chest discomfort in the middle of the chest radiating to the left shoulder and has been complaining generalized body aches on arrival to the ER patient was noticed to be febrile with a temperature of 102 F patient did not have any tachycardia she has been satting 100% on room air patient did have white count of 11.4 with a left shift D-dimer was elevated 6.08 patient did have elevated troponin kidney function has been normal liver enzymes are normal urine was negative curtis PCR was negative patient did have a blood cultures which came up positive with gram- positive cocci patient did have a chest x-ray was negative for acute cardiopulmonary disease echocardiogram did shows a 1.4 cm by echodensity subaortic attached to the ventricular septum and a question of possible vegetation patient has been started on vancomycin infectious was consulted for further management of it by therapy Review of system: CONSTITUTIONAL: Positive for weakness along with the fever. EYES: No complaint. ENT: No complaint. RESPIRATORY: As per history of present illness. CARDIOVASCULAR: As per history of present illness. GENITOURINARY: No complaint. GASTROINTESTINAL: No complaint. MUSCULOSKELETAL: No complaint. INTEGUMENTARY: No complaint. PSYCHOLOGIC: No complaint. ENDOCRINE: No complaint. NEUROLOGIC: No complaint. Past medical history : Reviewed, documented below Past surgical history : Reviewed, documented below Social history: Reviewed, documented below Medications: Reviewed, as documented below EXAMINATION: Vital sigans= Reviewed and documented below GENERAL DESCRIPTION: Middle-aged female lying in bed, no distress. No tachypnea or accessory muscle of respiration use. HEENT: Shows Pallor , no scleral icterus. Oral mucous membrane is dry. NECK: Trachea central, no thyromegaly. LUNGS: Unlabored breathing. Clear to auscultation anteriorly. No wheeze or c rackle. HEART: S1, S2, regular rate and rhythm. ABDOMEN: Soft, no tenderness , guarding or rigidity EXTREMITIES: No edema of feet. SKIN: No rash, no masses palpable. NEUROLOGICAL: The patient is awake, alert, oriented x3, mood and affect normal. LABS AND RADIOLOGY: Reviewed results see below Assessment : Patient presented to hospital with weakness not feeling well lower extremity swelling in this patient who did have history of Tetralogy of Fallot status post surgical repair and pulmonary valve replacement now with evidence of fever and bacteremia abnormal echo high clinical suspicious for infective endocarditis as no other obvious focus of infection Plan: 1-blood cultures will be repeated document clearance of bacteremia 2-patient benefit from SHARON to better define underlying abnormality 3-vancomycin pharmacy to dose with a target trough of 15 while watching kidney function and Vanco trough closely. We will follow on clinical condition and cultures to further adjust medication if needed Thank you for this consultation we will follow the patient along with you Past Medical History Past Medical History: Chest Pain / Angina, Hypertension History of Any Multi-Drug Resistant Organisms: None Reported Past Surgical History: Cardiac Valve Replacement, Heart Catheterization Additional Past Surgical History / Comment(s): tetralogy of fallot Past Psychological History: No Psychological Hx Reported Smoking Status: Never smoker Past Alcohol Use History: None Reported Past Drug Use History: Marijuana - Past Family History Mother Family Medical History: Cancer Additional Family Medical History / Comment(s): breast, uterine cancer Medications and Allergies Home Medications Medication Instructions Recorded Confirmed Type Cyclobenzaprine [Flexeril] 5 mg PO Q8H PRN 05/29/21 05/29/21 History Dextroamphetamine/Amphetamine 20 mg PO TID 05/29/21 05/29/21 History [Adderall] Ibuprofen [Motrin] 800 mg PO Q8H PRN 05/29/21 05/29/21 History Omeprazole 20 mg PO DAILY 05/29/21 05/29/21 History Ondansetron [Zofran] 4 mg PO TID PRN 05/29/21 05/29/21 History Allergies Allergy/AdvReac Type Severity Reaction Status Date / Time No Known Allergies Allergy Verified 05/29/21 07:57 Physical Exam Vitals: Vital Signs Temp Pulse Resp BP Pulse Ox 05/29/21 08:00 97.5 F L 70 18 125/92 97 05/29/21 06:36 97.7 F 83 18 141/100 100 05/29/21 04:32 63 18 148/107 97 05/29/21 02:05 77 18 96 05/29/21 00:30 81 18 148/89 97 05/28/21 22:36 102.1 F H 108 H 18 157/89 97 Intake and Output 05/28/21 05/29/21 05/29/21 22:59 06:59 14:59 Other: Weight 48.081 kg Results CBC & Chem 7: 05/30/21 04:40 05/30/21 04:40 Labs: Abnormal Lab Results - Last 24 Hours (Table) 05/28/21 05/28/21 05/28/21 Range/Units 23:40 23:40 23:40 WBC 11.4 H (3.8-10.6) k/uL Hgb 10.4 L (11.4-16.0) gm/dL Hct 33.5 L (34.0-46.0) % MCV 77.7 L (80.0-100.0) fL MCH 24.2 L (25.0-35.0) pg RDW 16.8 H (11.5-15.5) % Neutrophils # 9.9 H (1.3-7.7) k/uL Lymphocytes # 0.9 L (1.0-4.8) k/uL PT (9.0-12.0) sec INR (<1.2) APTT 20.8 L (22.0-30.0) sec D-Dimer (<0.60) mg/L FEU Sodium 132 L (137-145) mmol/L Carbon Dioxide 21 L (22-30) mmol/L Alkaline Phosphatase 148 H (38-126) U/L Lactate Dehydrogenase 877 H (313-618) U/L Troponin I (0.000-0.034) ng/mL C-Reactive Protein 5.8 H (<1.0) mg/dL Albumin 3.4 L (3.5-5.0) g/dL Urine Blood (Negative) Ur Squamous Epith Cells (0-4) /hpf Urine Bacteria (None) /hpf 05/28/21 05/29/21 05/29/21 Range/Units 23:40 04:32 04:32 WBC (3.8-10.6) k/uL Hgb (11.4-16.0) gm/dL Hct (34.0-46.0) % MCV (80.0-100.0) fL MCH (25.0-35.0) pg RDW (11.5-15.5) % Neutrophils # (1.3-7.7) k/uL Lymphocytes # (1.0-4.8) k/uL PT (9.0-12.0) sec INR (<1.2) APTT (22.0-30.0) sec D-Dimer (<0.60) mg/L FEU Sodium (137-145) mmol/L Carbon Dioxide (22-30) mmol/L Alkaline Phosphatase (38-126) U/L Lactate Dehydrogenase (313-618) U/L Troponin I 0.111 H* 0.076 H* (0.000-0.034) ng/mL C-Reactive Protein (<1.0) mg/dL Albumin (3.5-5.0) g/dL Urine Blood Small H (Negative) Ur Squamous Epith Cells 5 H (0-4) /hpf Urine Bacteria Rare H (None) /hpf 05/29/21 05/29/21 Range/Units 08:27 08:27 WBC (3.8-10.6) k/uL Hgb (11.4-16.0) gm/dL Hct (34.0-46.0) % MCV (80.0-100.0) fL MCH (25.0-35.0) pg RDW (11.5-15.5) % Neutrophils # (1.3-7.7) k/uL Lymphocytes # (1.0-4.8) k/uL PT 12.1 H (9.0-12.0) sec INR 1.2 H (<1.2) APTT (22.0-30.0) sec D-Dimer 6.08 H (<0.60) mg/L FEU Sodium (137-145) mmol/L Carbon Dioxide (22-30) mmol/L Alkaline Phosphatase (38-126) U/L Lactate Dehydrogenase (313-618) U/L Troponin I 0.044 H* (0.000-0.034) ng/mL C-Reactive Protein (<1.0) mg/dL Albumin (3.5-5.0) g/dL Urine Blood (Negative) Ur Squamous Epith Cells (0-4) /hpf Urine Bacteria (None) /hpf
[2021-05-30] MEDS: ACETAMINOPHEN TAB 325 MG TAB PO PRN (08:29)
[2021-05-30] MEDS: HEPARIN SOD,PORK IN 0.45% NACL 25,000 UNIT in 0.45% NACL 1 250ML.BAG IV SCH (09:03)
[2021-05-30] MEDS ORDERED: KETOROLAC 15 MG/ML 1 ML VIAL IVP STA (09:15)
[2021-05-30] MEDS ORDERED: KETOROLAC 30 MG/ML 1 ML VIAL IVP STA (09:21)
--- NOTE | 2021-05-30 10:38 | P.PN ---
Subjective This is a 46-year-old female with past medical history significant for tetralogy of Fallot status post surgical repair in childhood, status post pulmonary valve replacement at age 18, another valve surgery in her 30s (possible TAVR per patient's description), hypertension. She follows with Dr. Gutierrez at [facility]. We are consulted for NSTEMI. She presents to the emergency department with worsening shortness of breath, left sided chest pain radiating to her left arm, palpitations. She states her symptoms started 1 month ago and progressively getting worse. She is also having symptoms of fever, chills, night sweats, Left sided abdominal pain, nausea and vomiting. She states her left sided chest pain and arm pain, worsened yesterday, describes it as a tightness, it was non- exertional. Aggravated by movement. She states it has improved with medication in the ER which she was given Tylenol and IV morphine. She had lower extremity s welling which has improved/resolved. She also endorses facial swelling at home. She states she did have a cardiac catheterization in her 30s and was told it was normal. Most recent stress test/echocardiogram was about 3 years ago. She denies history of diabetes, MA, stroke, seizure. She denies history of CAD. She denies smoking or alcohol use. She occasionally smokes marijuana. She denies illicit drug use 05/30/2021 Pt seen and examined resting comfortably in bed in no acute distress. She is complaining of pleuritic type pain over the left chest and torso. Exacerbated by breathing. Blood pressure 122/82 heart rate 77 afebrile and maintaining oxygen saturation on room air. Blood cultures positive for gram-positive cocci. Currently waiting for a bed assignment at [facility]. Echocardiogram obtained reveals preserved LV systolic function with ejection fraction 55-60%, ventricular septum appears intact with septal repair, 1.4 cm mobile echodensity which is subaortic and appears attached to the ventricular septum, possibly surgical remanent or vegetation, mild to moderate aortic regurgitation with a mean gradient 7 mmHg, mild MR, moderate TR with an RVSP of 89 mmHg. Vegetation appears to be located on the sub pulmonic valve. PHYSICAL EXAMINATION CONSTITUTIONAL: No apparent distress HEENT: Head is normocephalic. Pupils are equal, round. Sclerae anicteric. Mucous membranes of the mouth are moist. No JVD. No carotid bruit. CHEST EXAMINATION: Lungs are clear to auscultation. No chest wall tenderness is noted on palpation or with deep breathing. HEART EXAMINATION: Regular rate and rhythm. S1, S2 heard. Systolic and diastolic murmur noted at base and apex ABDOMEN: Soft, Tender left lower quadrant. Positive bowel sounds. EXTREMITIES: 2+ peripheral pulses, no lower extremity edema and no calf tenderness. +splinter hemorrhages and red lesions on bilateral fingers ASSESSMENT: Chest pain, shortness of breath Elevated troponin, due not appear to be indicative of acute coronary syndrome, possibly related to underlying infection Fever, Chills, night sweats Left abdominal pain, nausea and vomiting Leukocytosis History of Tetralogy of Fallot s/p surgical repair at age 3 History of pulmonic valve replacement at age 18 History of another valve surgery in her 30s, patient not aware of details History of Hypertension PLAN: Discontinue heparin infusion. Awaiting bed at [facility] in [place]. Continue antibiotics per ID. Pt reassured of plan of care and agreeable to transfer. We will ensure a CD of the echo goes with her. Nurse Practitioner note has been reviewed, I agree with a documented findings and plan of care. Patient was seen and examined. Objective - Vital Signs Vital signs: Vital Signs Temp 97.4 F L 05/30/21 04:00 Pulse 77 05/30/21 04:00 Resp 16 05/30/21 04:00 BP 122/82 05/30/21 04:00 Pulse Ox 99 05/30/21 04:00 Intake & Output 05/29/21 05/30/21 05/30/21 18:59 06:59 18:59 Intake Total 119.891 118 Output Total 0 Balance 119.891 118 Weight 48.7 kg Intake: Intake, IV Titration 119.891 Amount Heparin Sod,Pork in 0.45% 119.891 NaCl 25,000 unit In 0.45 % NaCl 1 250ml.bag @ 12 UNITS/KG/HR 5.77 mls/hr IV .Q24H [facility] Rx#: [id number] Oral 118 Output: Urine 0 Other: Voiding Method Toilet - Labs CBC & Chem 7: 05/30/21 04:40 05/30/21 04:40 Labs: Abnormal Lab Results - Last 24 Hours (Table) 05/29/21 05/29/2105/29/21 Range/Units 08:27 08:27 14:24 Hgb (11.4-16.0) gm/dL MCV (80.0-100.0) fL MCH (25.0-35.0) pg MCHC (31.0-37.0) g/dL RDW (11.5-15.5) % Neutrophils # (1.3-7.7) k/uL PT 12.1 H (9.0-12.0) sec INR 1.2 H (<1.2) D-Dimer 6.08 H (<0.60) mg/L FEU BUN (7-17) mg/dL Glucose (74-99) mg/dL Troponin I 0.044 H* 0.052 H* (0.000-0.034) ng/mL 05/30/21 05/30/21 Range/Units 04:40 04:40 Hgb 10.7 L (11.4-16.0) gm/dL MCV 78.3 L (80.0-100.0) fL MCH 23.9 L (25.0-35.0) pg MCHC 30.5 L (31.0-37.0) g/dL RDW 16.7 H (11.5-15.5) % Neutrophils # 7.9 H (1.3-7.7) k/uL PT (9.0-12.0) sec INR (<1.2) D-Dimer (<0.60) mg/L FEU BUN 21 H (7-17) mg/dL Glucose 100 H (74-99) mg/dL Troponin I (0.000-0.034) ng/mL Microbiology - Last 24 Hours (Table) 05/29/21 04:15 Blood Culture Gram Stain - Preliminary Blood Blood Culture - Preliminary Streptococcus species 05/29/21 04:30 Blood Culture Gram Stain - Preliminary Blood 05/29/21 04:30 Blood Culture - Final Blood 05/29/21 04:15 Blood Culture - Final Blood
[2021-05-30 16:06] VITALS: BP 130/85; PULSE 85; RESP 18; TEMP 98
[2021-05-30] MEDS ORDERED: MORPHINE SULFATE 2 MG/ML SYRINGE IVP PRN (16:19)
--- NOTE | 2021-05-30 16:47 | P.PN ---
Subjective Patient is complaining of nonspecific pain this morning. No acute events overnight. Blood culture from yesterday showing gram-positive cocci. Objective - Vital Signs Vital signs: Vital Signs Temp 98.0 F 05/30/21 16:00 Pulse 85 05/30/21 16:00 Resp 18 05/30/21 16:00 BP 130/85 05/30/21 16:00 Pulse Ox 98 05/30/21 16:00 Intake & Output 05/29/21 05/30/21 05/30/21 18:59 06:59 18:59 Intake Total 119.891 236 Output Total 0 Balance 119.891 236 Weight 48.7 kg Intake: Intake, IV Titration 119.891 Amount Heparin Sod,Pork in 0.45% 119.891 NaCl 25,000 unit In 0.45 % NaCl 1 250ml.bag @ 12 UNITS/KG/HR 5.77 mls/hr IV .Q24H [facility] Rx#: [id number] Oral 236 Output: Urine 0 Other: Voiding Method Toilet Toilet # Voids 2 # Bowel Movements 2 - Exam General: The patient is awake and alert, in no distress Eye: there is normal conjunctiva bilaterally. Neck: The neck is supple, there is no JVD. Cardiovascular: Normal S1-S2, no S3-S4, no murmurs. Respiratory: Lungs clear to auscultation bilaterally Gastrointestinal: Abdomen is soft, nontender Musculoskeletal: There is no pedal edema. Neurological:. Speech is normal. Skin: Skin is warm and dry - Labs CBC & Chem 7: 05/30/21 04:40 05/30/21 04:40 Labs: Abnormal Lab Results - Last 24 Hours (Table) 05/30/21 05/30/21 Range/Units 04:40 04:40 Hgb 10.7 L (11.4-16.0) gm/dL MCV 78.3 L (80.0-100.0) fL MCH 23.9 L (25.0-35.0) pg MCHC 30.5 L (31.0-37.0) g/dL RDW 16.7 H (11.5-15.5) % Neutrophils # 7.9 H (1.3-7.7) k/uL BUN 21 H (7-17) mg/dL Glucose 100 H (74-99) mg/dL Microbiology - Last 24 Hours (Table) 05/29/21 04:15 Blood Culture Gram Stain - Preliminary Blood Blood Culture - Preliminary Streptococcus species 05/29/21 04:30 Blood Culture Gram Stain - Preliminary Blood 05/29/21 04:30 Blood Culture - Final Blood 05/29/21 04:15 Blood Culture - Final Blood Assessment and Plan Assessment: This is a 46-year-old female with complex past medical history noted below that presented to the emergency room with worsening dyspnea and bilateral lower extremity swelling. Patient was evaluated in the ER and admitted to the hospital for further management of her medical problems noted below. 1. Sepsis on presentation with gram-positive cocci bacteremia preliminary culture showing strep bacteremia with suspected underlying endocarditis and echocardiogram showing a mobile echodensity in the proximal pulmonary artery concerning for vegetation versus related to old surgeries. Patient was seen and evaluated by cardiology and infectious disease. She was started on broad spectrum antibiotic with IV vancomycin and transitioned to cefazolin. Repeat blood culture on 05/30 ordered and pending. We will continue supportive care otherwise. Plan to transfer patient to [facility] where she is known to the cardiology team over there and to cardiac surgery. She is already accepted awaiting bed availability. 2. Elevated troponin on presentation, most likely non-thrombotic troponin leak. Patient was treated with IV heparin and aspirin on presentation. ACS ruled out by cardiology. Continue current regimen as recommended by cardiology. 3. History of tetralogy of Fallot status post surgical repair with pulmonary valve replacement at age 14 (per patient report)
[2021-05-30] MEDS ORDERED: VANCOMYCIN 750 MG in SODIUM CHLORIDE 0.9% 250 ML IVPB SCH (17:00)
== END 2021-05-30 18:15 | disposition short-term general hospital (02) | DRG 871 ==
LOC: EC 22:33 → 3SCARD 05-29 06:24
PROVIDERS: ADMIT Internal Medicine; ATTEND Internal Medicine
DX: A40.9 Streptococcal sepsis, unspecified (principal); I33.0 Acute and subacute infective endocarditis; R79.89 Other specified abnormal findings of blood chemistry; I10 Essential (primary) hypertension; I45.10 Unspecified right bundle-branch block; D64.9 Anemia, unspecified; I08.3 Combined rheumatic disorders of mitral, aortic and tricuspid valves; Z20.822 Contact with and (suspected) exposure to COVID-19; Z95.2 Presence of prosthetic heart valve; Z86.79 Personal history of other diseases of the circulatory system
CPT/HCPCS: 36415; 71045; 80048; 80053; 80202; 81001; 82728; 83605; 83615; 83735; 83880; 84484; 85025; 85379; 85610; 85730; 86140; 87040; 87077; 87186; 87635; 93005; 93306; 94760; 96361; 96365; 96367; 96375; 99285